=== PATIENT | female | born 2000 | race Caucasian/White ===

== ENCOUNTER 2021-11-25 08:49 | Emergency (ER) | payer MEDICAID ==
[~2021-11-25] VITALS: Ht 162.6 cm; Wt 73.0 kg
[2021-11-25] MEDS ORDERED: ONDANSETRON 4MG ODT PO ONE (10:45)
[2021-11-25] MEDS ORDERED: KETOROLAC 30MG/ML VIAL IM ONE (10:45)
[2021-11-25 11:02] LABS: CLARITY URINE CLOUDY (CLEAR); COLOR URINE ORANGE (YELLOW); KETONES URINE NEGATIVE (NEGATIVE); LEUKOCYTE ESTERASE URINE TRACE (NEGATIVE); NITRITE URINE NEGATIVE (NEGATIVE); OCCULT BLOOD URINE 3+ (NEGATIVE); PROTEIN URINE 1+ (NEGATIVE); SPECIFIC GRAVITY URINE 1.012 (1.005-1.030)
[2021-11-25 11:50] LABS: BASOPHILS % 0.6 % (0.0-2.0); EOSINOPHILS % 3.6 % (0.0-5.0); HEMATOCRIT. 40.6 % (36.0-48.0); LYMPHOCYTES % 28.6 % (20.0-50.0); MEAN CORPUSCULAR HEMOGLOBIN 31.1 pg (28.0-32.0); MEAN CORPUSCULAR VOLUME 90.7 fL (81.0-99.0); MEAN PLATELET VOLUME 7.5 fl (7.4-10.4); MONOCYTES % 7.3 % (2.0-8.0); NEUTROPHILS % 59.9 % (40.0-76.0); PLATELET 306 x1000/uL (130-400); RED BLOOD CELL COUNT 4.48 mill/uL (4.2-5.4); RED CELL DISTRIBUTION WIDTH 13.8 % (11.6-14.6)
[2021-11-25 11:54] LABS: CHLORIDE 109 mEq/L (98-107)
[2021-11-25] MEDS ORDERED: ONDANSETRON 4MG ODT PO NR (12:25)
[2021-11-25] MEDS ORDERED: KETOROLAC 30MG/ML VIAL IM NR (12:25)
[2021-11-25] MEDS ORDERED: TAMSULOSIN HCL 0.4MG SR CAPSULE PO ONE (14:15)
[2021-11-25] MEDS ORDERED: ONDA4TAB5 MT (14:17)
[2021-11-25] MEDS ORDERED: IBUP-2030 MT (14:17)
[2021-11-25] MEDS ORDERED: TAMS-11 MT (14:17)
[2021-11-25 14:43] VITALS: BP 135/80
== END 2021-11-25 14:45 | disposition home or self-care (01) ==
LOC: ER 08:49
DX: N20.1 Calculus of ureter (principal); R19.7 Diarrhea, unspecified; E11.9 Type 2 diabetes mellitus without complications; I10 Essential (primary) hypertension; Z90.49 Acquired absence of other specified parts of digestive tract; Z88.0 Allergy status to penicillin
CPT/HCPCS: 36415; 74176; 80053; 81003; 81025; 83690; 85025; 96372; 99284; J1885; Q0162

== ENCOUNTER 2021-11-26 02:18 | Emergency (ER) | payer MEDICAID ==
[~2021-11-26] VITALS: Ht 162.6 cm; Wt 119.0 kg
[~2021-11-26 02:18] MED LIST: IBUP-2030 MT; ONDA4TAB5 MT; TAMS-11 MT
[2021-11-26] MEDS ORDERED: KETOROLAC 15MG/ML VIAL IV ONE (02:45)
[2021-11-26] MEDS ORDERED: SODIUM CHLORIDE 0.9% 1,000 ML IV ONE (02:45)
[2021-11-26] MEDS ORDERED: ONDANSETRON HCL 4MG/2ML INJ IV ONE (02:45)
[2021-11-26 04:04] LABS: CLARITY URINE CLOUDY (CLEAR); COLOR URINE YELLOW (YELLOW); KETONES URINE NEGATIVE (NEGATIVE); LEUKOCYTE ESTERASE URINE 1+ (NEGATIVE); NITRITE URINE NEGATIVE (NEGATIVE); OCCULT BLOOD URINE 3+ (NEGATIVE); PH URINE 5.5 (4.5-8.0); PROTEIN URINE TRACE (NEGATIVE); SPECIFIC GRAVITY URINE 1.018 (1.005-1.030); UROBILINOGEN URINE 0.2 E.U./dL (0.2-1.0)
[2021-11-26 05:32] LABS: BASOPHILS % 0.5 % (0.0-2.0); EOSINOPHILS % 2.6 % (0.0-5.0); HEMATOCRIT. 40.7 % (36.0-48.0); HEMOGLOBIN. 13.9 g/dL (12.0-16.0); LYMPHOCYTES % 16.8 % (20.0-50.0); MEAN CORPUSCULAR VOLUME 90.7 fL (81.0-99.0); MEAN PLATELET VOLUME 7.6 fl (7.4-10.4); NEUTROPHILS % 74.1 % (40.0-76.0); PLATELET 276 x1000/uL (130-400); RED BLOOD CELL COUNT 4.48 mill/uL (4.2-5.4); RED CELL DISTRIBUTION WIDTH 13.8 % (11.6-14.6)
[2021-11-26 05:39] LABS: CHLORIDE 107 mEq/L (98-107)
[2021-11-26 06:16] VITALS: BP 135/83
== END 2021-11-26 06:18 | disposition home or self-care (01) ==
LOC: ER 02:18
DX: N23 Unspecified renal colic (principal); R11.10 Vomiting, unspecified; E11.9 Type 2 diabetes mellitus without complications; I10 Essential (primary) hypertension; Z88.3 Allergy status to other anti-infective agents; Z90.49 Acquired absence of other specified parts of digestive tract
CPT/HCPCS: 36415; 80053; 81003; 85025; 96374; 96375; 99284; J1885; J2405; J7030